=== PATIENT | female | born 1990 | race Caucasian/White ===

== ENCOUNTER 2025-04-16 05:03 | Emergency (ER) | payer SELFPAY ==
[2025-04-16] MEDS: Tetracaine HCl/PF 0.5% 4 ML Bottle EYELF ONE (05:21)
== END 2025-04-16 05:24 | disposition home or self-care (01) ==
LOC: MW.ED 05:03
DX: T15.02XA Foreign body in cornea, left eye, initial encounter (principal)
CPT/HCPCS: 65205; 99283; A9270; J3490